=== PATIENT | female | born 1975 ===

== ENCOUNTER → 2018-09-18 21:22 | Outpatient (REF) | payer OTHER, SELFPAY ==
[2018-09-19 00:46] LABS: Urine Chlamydia NOT DETECTED; Urine N gonorrhoeae NOT DETECTED
== END ==
LOC: LAB 21:22
PROVIDERS: Visit Provider Naturopath
DX: Z11.3 Encounter for screening for infections with a predominantly sexual mode of transmission (principal); N76.0 Acute vaginitis
CPT/HCPCS: 87491; 87591